=== PATIENT | female | born 1975 | race Caucasian/White ===

== ENCOUNTER 2018-10-30 17:44 | Emergency (ER) | payer MEDICAID ==
[~2018-10-30] VITALS: Ht 157.5 cm; Wt 59.1 kg
[2018-10-30 17:55] VITALS: Ht 157.5 cm; Wt 59.1 kg
[2018-10-30] MEDS ORDERED: LORAZEPAM 1 MG TAB PO ONE (19:00)
[2018-10-30 23:58] VITALS: BP 135/81; PULSE 79; RESP 20
== END 2018-10-30 23:59 | disposition home or self-care (01) ==
LOC: FTE 17:44 → E/R 23:59
DX: F10.180 Alcohol abuse with alcohol-induced anxiety disorder (principal); F10.129 Alcohol abuse with intoxication, unspecified
CPT/HCPCS: 80053; 80307; 81001; 81025; 85025; Z7502; Z7610; 81003; 99283